=== PATIENT | female | born 1925 | race Caucasian/White ===

== ENCOUNTER 2016-07-29 14:18 | Emergency (ER) | payer MEDICARE, BC, OTHER ==
--- NOTE | 2016-07-29 15:52 | REP ---
Clinical: Pain and swelling . Technique: Moody scale and color Doppler evaluation using linear high frequency transducer. Findings: Ultrasound examination of the left lower extremity deep venous structures from the common femoral vein to the popliteal vein demonstrates normal compressibility flow and wave patterns in response to respiration and augmentation. There is no evidence for deep venous thrombosis. Impression: No evidence for deep venous thrombosis. Signed by Lg Armando MD 07/29/2016 03:44 P
--- NOTE | 2016-07-29 18:02 | EDDOCDS ---
Nurse's Notes [facility] Name: Marlyn Davison Age: 89 yrs Sex: Female : 1925 Arrival Date: 07/29/2016 Time: 14:18 Bed TR7 Private MD: Ida Ramires M. Diagnosis: Pain in left knee Presentation: 07/29 14:22 Presenting complaint: Patient states: pain/swelling in back of left knee for 4 days. rs3 was seen in urgent care. sent here to r/o blood clot. H/o DVT a year ago. Adult Sepsis Screening: The patient does not have new or worsening altered mentation. Patient's respiratory rate is less than 22. Systolic blood pressure is greater than 100. Patient has a qSOFA score of 0- Negative Sepsis Screen. Suicide/Homicide risk assessment- the patient denies having any suicidal and/or homicidal ideations and does not present with any other emotional, behavioral or mental health complaints. Status: Patient is not a agricultural services director or dependent. Transition of care: patient was not received from another setting of care. 14:22 Acuity: SHAINA Level 3 rs3 14:22 Method Of Arrival: Wheelchair rs3 Triage Assessment: 14:29 General: Appears in no apparent distress. Pain: Location: medial aspect of left knee. rs3 Historical: - Allergies: PENICILLINS (Hives); SULFA (SULFONAMIDES) (Hives); - Home Meds: 1. Calcarb 600 With Vitamin D 600 mg(1,500mg) -200 unit Oral tab daily 2. Fish Oil 1,000 mg oral cap daily 3. Glucosamine 500 mg oral tab daily 4. Tylenol 325 mg Oral tab 2 tabs every 4-6 hours 5. omeprazole 20 mg Oral TbEC 20 mg daily 6. Micardis 80 mg Oral tab 1 tab once daily 7. Klor-Con 10 10 mEq Oral TbER 1 tab 2 times per day 8. Multivitamin 50 Plus oral tab daily 9. Colace 100 mg oral cap 2 times per day 10. aspirin 81 mg Oral tab once daily 11. Lasix 20 mg Oral tab once daily - PMHx: Hypertension; Irritable bowel syndrome; GERD; - PSHx: Tubal ligation; D & C; Hemorrhoidectomy; - Social history: Smoking status: Patient states was never smoker of tobacco. No barriers to communication noted, The patient speaks fluent Montserratian. - Family history: Not pertinent. - : The pt / caregiver states he / she is not on anticoagulants. Home medication list is obtained from the patient. - Exposure Risk Screening:: None identified. Screenin:44 Screening information is obtained from the patient. Fall risk: No risks identified. hs1 Assistance ADL's: requires no assistance with activities of daily living. Abuse/DV Screen: The patient / caregiver reports he/she is: not in a situation that causes fear, pain or injury. Nutritional screening: No deficits noted. Advance Directives: Currently, there is no health care proxy. home support is adequate. Assessment: 15:55 General: Appears in no apparent distress, Behavior is appropriate for age, cooperative. hs1 Pain: Location: posterior aspect of left knee Pain currently is 8 out of 10 on a pain scale. Neurological: No deficits noted. Cardiovascular: No deficits noted. Respiratory: Airway is patent Respiratory effort is even, unlabored, Respiratory pattern is regular, symmetrical. Derm: Skin is pink, warm & dry. normal. Musculoskeletal: Range of motion intact in all extremities. Vital Signs: 14:20 BP 218 / 115; Pulse 79; Resp 18; Temp 97.2; Pulse Ox 99% ; Weight 81.19 kg; Height 5 elp ft. 4 in. (162.56 cm); Pain 9/10; 15:50 BP 180 / 86 LA (man/); hs1 17:09 BP 181 / 92; Pulse 70; Resp 18; Temp 98.3(TE); Pulse Ox 100% ; Pain 2/10; jrd 14:20 Body Mass Index 30.72 (81.19 kg, 162.56 cm) [facility] Vitals: 14:20 Log In Time: July 29, 2016 at 14:18. [facility] ED Course: 14:19 Patient visited by Olga Keating PCA. elp 14:19 Patient moved to Waiting elp 14:20 Ida Ramires is Private Physician. elp 14:20 Patient visited by Olga Keating PCA. elp 14:20 Patient moved to Pre RCE elp 14:24 Triage Initiated rs3 15:11 Patient moved to Triage 3 dls 15:15 [facility] jk8 15:15 Zana Gonzalez MD is Attending Physician. jk8 15:15 Patient visited by Cristian Glover PA-C. jk8 15:22 Patient moved to I7 / 29 dls 15:28 Patient moved to Ultrasound hgl 15:43 Patient moved to I7 / 29 hgl 15:50 Patient visited by Stephanie Bravo RN. hs1 16:28 Ultrasound LE Unilateral R/O DVT Returned. EDMS 16:40 No IV's were initiated during this patient's visit. No procedures done that require hs1 assistance. 16:56 Patient visited by Stephanie Bravo RN. hs1 17:03 Patient moved to PD2 / 27 jrd 17:09 Patient visited by Cristian Talavera PCA. jrd 17:15 Patient moved to TR7 jrd 17:20 The patient / caregiver is instructed regarding the plan of care and ED course. hs1 17:36 [facility] Payment Agreement was scanned into Roov[employer] and attached to record. kf3 Order Results: Radiology Order: Ultrasound LE Unilateral R/O DVT Test: Ultrasound LE Unilateral R/O DVT REASON FOR EXAMINATION: dvt; Clinical: Pain and swelling .; ; Technique: Moody scale and color Doppler evaluation using linear high frequency; transducer.; ; Findings:; Ultrasound examination of the left lower extremity deep venous structures from; the common femoral vein to the popliteal vein demonstrates normal compressibility; flow and wave patterns in response to respiration and augmentation. There is no; evidence for deep venous thrombosis.; ; Impression:; No evidence for deep venous thrombosis.; ; ; Signed by; Lg Armando MD 07/29/2016 03:44 P; Outcome: 15:58 Ultrasound Study completed. hs1 17:01 Discharge ordered by Provider. jk8 17:25 Discharge Assessment: Patient awake, alert and oriented x 3. No cognitive and/or hs1 functional deficits noted. Patient verbalized understanding of disposition instructions. patient administered narcotics - no. The following High Risk Discharge criteria are identified: None. Discharged to home ambulatory. Condition: good. Discharge instructions given to patient, Instructed on discharge instructions, follow up and referral plans. medication usage, Demonstrated understanding of instructions, medications, Property sent home with patient. 18:01 Patient left the ED. hs1 Signatures: Dispatcher [employer] EDShazia Nagel RN RN dls Fiddler, Kris, Reg Reg kf3 Ladi CrockettRN RN rs3 Stephanie Bravo RN RN hs1 Ly, Paresh hgl Olga Keating, BLADDER CHANGER BLADDER CHANGER jackyp Cristian Talavera, BLADDER CHANGER BLADDER CHANGER jrd Cristian Glover, YESENIA PATTERSON jk8 Corrections: (The following items were deleted from the chart) 18:01 18:00 Condition: good hs1 hs1 18: 18:00 Discharge Assessment: Patient awake, alert and oriented x 3. No cognitive and/or hs1 functional deficits noted. Patient verbalized understanding of disposition instructions. patient administered narcotics - no hs1 18: 18:00 The following High Risk Discharge criteria are identified: None. Discharged to [facility] home ambulatory, [facility] 18: 18:00 Property sent home with patient. [place] [id number] 18:01 18:00 Discharge instructions given to patient, Instructed on discharge instructions, hs1 follow up and referral plans. medication usage, Demonstrated understanding of instructions, medications, hs1 MTDD
--- NOTE | 2016-07-29 18:02 | EDDOCDS ---
Physician Documentation [facility] Name: Marlyn Davison Age: 89 yrs Sex: Female : 1925 Arrival Date: 07/29/2016 Time: 14:18 Bed TR7 Private MD: Ida Ramires M. Disposition: 07/29/16 17:01 Discharged to Home/Self Care. Impression: Pain in left knee. - Condition is Stable. - Medication Reconciliation, Local Pharmacy Hours form. - Follow up: Emergency Department; When: As soon as possible; Reason: Worsening of conditions. Follow up: Private Physician; When: 2 - 3 days; Reason: Recheck today's complaints. - Problem is new. - Symptoms are unchanged. Historical: - Allergies: PENICILLINS (Hives); SULFA (SULFONAMIDES) (Hives); - Home Meds: 1. Calcarb 600 With Vitamin D 600 mg(1,500mg) -200 unit Oral tab daily 2. Fish Oil 1,000 mg oral cap daily 3. Glucosamine 500 mg oral tab daily 4. Tylenol 325 mg Oral tab 2 tabs every 4-6 hours 5. omeprazole 20 mg Oral TbEC 20 mg daily 6. Micardis 80 mg Oral tab 1 tab once daily 7. Klor-Con 10 10 mEq Oral TbER 1 tab 2 times per day 8. Multivitamin 50 Plus oral tab daily 9. Colace 100 mg oral cap 2 times per day 10. aspirin 81 mg Oral tab once daily 11. Lasix 20 mg Oral tab once daily - PMHx: Hypertension; Irritable bowel syndrome; GERD; - PSHx: Tubal ligation; D & C; Hemorrhoidectomy; - Social history: Smoking status: Patient states was never smoker of tobacco. No barriers to communication noted, The patient speaks fluent Scottish. - Family history: Not pertinent. - : The pt / caregiver states he / she is not on anticoagulants. Home medication list is obtained from the patient. - Exposure Risk Screening:: None identified. Vital Signs: 07/29 14:20 BP 218 / 115; Pulse 79; Resp 18; Temp 97.2; Pulse Ox 99% ; Weight 81.19 kg / 178.99 elp lbs; Height 5 ft. 4 in. (162.56 cm); Pain 9/10; 15:50 BP 180 / 86 LA (man/); hs1 17:09 BP 181 / 92; Pulse 70; Resp 18; Temp 98.3(TE); Pulse Ox 100% ; Pain 2/10; jrd 14:20 Body Mass Index 30.72 (81.19 kg, 162.56 cm) elp MDM: 15:20 Vital Signs ordered. jk8 15:21 Ultrasound LE Unilateral R/O DVT Ordered. EDMS 17:04 Ultrasound LE Unilateral R/O DVT Reviewed. jk8 17:25 Financial registration complete. kf3 17:36 [facility] Payment Agreement was scanned into [employer]linet[employer] and attached to record. kf3 Signatures: Dispatcher MedHost EDMS John Richardson, Reg Reg kf3 Ladi CrockettRN RN rs3 Stephanie Bravo RN RN hs1 Cristian Glover PA-C PA-C jk8 The chart was reviewed and I authenticate all verbal orders and agree with the evaluation and treatment provided.Attachments: 17:36 [facility] [place] Agreement kf3 MTDD
--- NOTE | 2016-07-31 19:02 | EDDOCDS ---
Physician Documentation Name: Marlyn Davison Age: 89 yrs Sex: Female : 1925 Arrival Date: 07/29/2016 Time: 14:18 Bed TR7 Private MD: Ida Ramires M. Disposition: 07/29/16 17:01 Discharged to Home/Self Care. Impression: Pain in left knee. - Condition is Stable. - Medication Reconciliation, Local Pharmacy Hours form. - Follow up: Emergency Department; When: As soon as possible; Reason: Worsening of conditions. Follow up: Private Physician; When: 2 - 3 days; Reason: Recheck today's complaints. - Problem is new. - Symptoms are unchanged. Historical: - Allergies: PENICILLINS (Hives); SULFA (SULFONAMIDES) (Hives); - Home Meds: 1. Calcarb 600 With Vitamin D 600 mg(1,500mg) -200 unit Oral tab daily 2. Fish Oil 1,000 mg oral cap daily 3. Glucosamine 500 mg oral tab daily 4. Tylenol 325 mg Oral tab 2 tabs every 4-6 hours 5. omeprazole 20 mg Oral TbEC 20 mg daily 6. Micardis 80 mg Oral tab 1 tab once daily 7. Klor-Con 10 10 mEq Oral TbER 1 tab 2 times per day 8. Multivitamin 50 Plus oral tab daily 9. Colace 100 mg oral cap 2 times per day 10. aspirin 81 mg Oral tab once daily 11. Lasix 20 mg Oral tab once daily - PMHx: Hypertension; Irritable bowel syndrome; GERD; - PSHx: Tubal ligation; D & C; Hemorrhoidectomy; - Social history: Smoking status: Patient states was never smoker of tobacco. No barriers to communication noted, The patient speaks fluent Namibian. - Family history: Not pertinent. - : The pt / caregiver states he / she is not on anticoagulants. Home medication list is obtained from the patient. - Exposure Risk Screening:: None identified. Vital Signs: 07/29 14:20 BP 218 / 115; Pulse 79; Resp 18; Temp 97.2; Pulse Ox 99% ; Weight 81.19 kg / 178.99 elp lbs; Height 5 ft. 4 in. (162.56 cm); Pain 9/10; 15:50 BP 180 / 86 LA (man/); hs1 17:09 BP 181 / 92; Pulse 70; Resp 18; Temp 98.3(TE); Pulse Ox 100% ; Pain 2/10; jrd 14:20 Body Mass Index 30.72 (81.19 kg, 162.56 cm) elp MDM: 15:20 Vital Signs ordered. jk8 15:21 Ultrasound LE Unilateral R/O DVT Ordered. EDMS 17:04 Ultrasound LE Unilateral R/O DVT Reviewed. jk8 17:25 Financial registration complete. kf3 17:36 [facility] [place] Agreement was scanned into [employer] and attached to record. kf3 22:21 T-Sheet-- Draft Copy was scanned into [employer] and attached to record. klr Signatures: Dispatcher MedHost EDMI John Richardson, Reg Reg kf3 Ladi Crockett,RN RN rs3 Stephanie Bravo RN RN hs1 Cristian Glover PA-C PA-C jk8 Julee Oconnor klr The chart was reviewed and I authenticate all verbal orders and agree with the evaluation and treatment provided.Attachments: 17:36 [facility] Payment Agreement kf3 22:21 T-Sheet-- Draft Copy klr Chart Complete MTDD
--- NOTE | 2016-07-31 19:02 | EDDOCDS ---
Physician Documentation [facility] Name: Marlyn Davison Age: 89 yrs Sex: Female : 1925 Arrival Date: 07/29/2016 Time: 14:18 Bed TR7 Private MD: Ida Ramires M. Disposition: 07/29/16 17:01 Discharged to Home/Self Care. Impression: Pain in left knee. - Condition is Stable. - Medication Reconciliation, Local Pharmacy Hours form. - Follow up: Emergency Department; When: As soon as possible; Reason: Worsening of conditions. Follow up: Private Physician; When: 2 - 3 days; Reason: Recheck today's complaints. - Problem is new. - Symptoms are unchanged. Historical: - Allergies: PENICILLINS (Hives); SULFA (SULFONAMIDES) (Hives); - Home Meds: 1. Calcarb 600 With Vitamin D 600 mg(1,500mg) -200 unit Oral tab daily 2. Fish Oil 1,000 mg oral cap daily 3. Glucosamine 500 mg oral tab daily 4. Tylenol 325 mg Oral tab 2 tabs every 4-6 hours 5. omeprazole 20 mg Oral TbEC 20 mg daily 6. Micardis 80 mg Oral tab 1 tab once daily 7. Klor-Con 10 10 mEq Oral TbER 1 tab 2 times per day 8. Multivitamin 50 Plus oral tab daily 9. Colace 100 mg oral cap 2 times per day 10. aspirin 81 mg Oral tab once daily 11. Lasix 20 mg Oral tab once daily - PMHx: Hypertension; Irritable bowel syndrome; GERD; - PSHx: Tubal ligation; D & C; Hemorrhoidectomy; - Social history: Smoking status: Patient states was never smoker of tobacco. No barriers to communication noted, The patient speaks fluent German. - Family history: Not pertinent. - : The pt / caregiver states he / she is not on anticoagulants. Home medication list is obtained from the patient. - Exposure Risk Screening:: None identified. Vital Signs: 07/29 14:20 BP 218 / 115; Pulse 79; Resp 18; Temp 97.2; Pulse Ox 99% ; Weight 81.19 kg / 178.99 elp lbs; Height 5 ft. 4 in. (162.56 cm); Pain 9/10; 15:50 BP 180 / 86 LA (man/); hs1 17:09 BP 181 / 92; Pulse 70; Resp 18; Temp 98.3(TE); Pulse Ox 100% ; Pain 2/10; jrd 14:20 Body Mass Index 30.72 (81.19 kg, 162.56 cm) elp MDM: 15:20 Vital Signs ordered. jk8 15:21 Ultrasound LE Unilateral R/O DVT Ordered. EDMS 17:04 Ultrasound LE Unilateral R/O DVT Reviewed. jk8 17:25 Financial registration complete. kf3 17:36 [facility] Payment Agreement was scanned into Debitos and attached to record. kf3 22:21 T-Sheet-- Draft Copy was scanned into Debitos and attached to record. klr Signatures: Dispatcher MedHost EDTX John Richardson, Reg Reg kf3 Ladi Crockett,RN RN rs3 Stephanie Bravo RN RN hs1 Cristian Glover PA-C PA-C jk8 Julee Oconnor klr The chart was reviewed and I authenticate all verbal orders and agree with the evaluation and treatment provided.Attachments: 17:36 [facility] Payment Agreement kf3 22:21 T-Sheet-- Draft Copy klr Chart Complete MTDD
--- NOTE | 2016-07-31 19:02 | EDDOCDS ---
Nurse's Notes [facility] Name: Marlyn Davison Age: 89 yrs Sex: Female : 1925 Arrival Date: 07/29/2016 Time: 14:18 Bed TR7 Private MD: Ida Ramires M. Diagnosis: Pain in left knee Presentation: 07/29 14:22 Presenting complaint: Patient states: pain/swelling in back of left knee for 4 days. rs3 was seen in urgent care. sent here to r/o blood clot. H/o DVT a year ago. Adult Sepsis Screening: The patient does not have new or worsening altered mentation. Patient's respiratory rate is less than 22. Systolic blood pressure is greater than 100. Patient has a qSOFA score of 0- Negative Sepsis Screen. Suicide/Homicide risk assessment- the patient denies having any suicidal and/or homicidal ideations and does not present with any other emotional, behavioral or mental health complaints. Status: Patient is not a imaging services director or dependent. Transition of care: patient was not received from another setting of care. 14:22 Acuity: SHAINA Level 3 rs3 14:22 Method Of Arrival: Wheelchair rs3 Triage Assessment: 14:29 General: Appears in no apparent distress. Pain: Location: medial aspect of left knee. rs3 Historical: - Allergies: PENICILLINS (Hives); SULFA (SULFONAMIDES) (Hives); - Home Meds: 1. Calcarb 600 With Vitamin D 600 mg(1,500mg) -200 unit Oral tab daily 2. Fish Oil 1,000 mg oral cap daily 3. Glucosamine 500 mg oral tab daily 4. Tylenol 325 mg Oral tab 2 tabs every 4-6 hours 5. omeprazole 20 mg Oral TbEC 20 mg daily 6. Micardis 80 mg Oral tab 1 tab once daily 7. Klor-Con 10 10 mEq Oral TbER 1 tab 2 times per day 8. Multivitamin 50 Plus oral tab daily 9. Colace 100 mg oral cap 2 times per day 10. aspirin 81 mg Oral tab once daily 11. Lasix 20 mg Oral tab once daily - PMHx: Hypertension; Irritable bowel syndrome; GERD; - PSHx: Tubal ligation; D & C; Hemorrhoidectomy; - Social history: Smoking status: Patient states was never smoker of tobacco. No barriers to communication noted, The patient speaks fluent Slovak. - Family history: Not pertinent. - : The pt / caregiver states he / she is not on anticoagulants. Home medication list is obtained from the patient. - Exposure Risk Screening:: None identified. Screenin:44 Screening information is obtained from the patient. Fall risk: No risks identified. hs1 Assistance ADL's: requires no assistance with activities of daily living. Abuse/DV Screen: The patient / caregiver reports he/she is: not in a situation that causes fear, pain or injury. Nutritional screening: No deficits noted. Advance Directives: Currently, there is no health care proxy. home support is adequate. Assessment: 15:55 General: Appears in no apparent distress, Behavior is appropriate for age, cooperative. hs1 Pain: Location: posterior aspect of left knee Pain currently is 8 out of 10 on a pain scale. Neurological: No deficits noted. Cardiovascular: No deficits noted. Respiratory: Airway is patent Respiratory effort is even, unlabored, Respiratory pattern is regular, symmetrical. Derm: Skin is pink, warm & dry. normal. Musculoskeletal: Range of motion intact in all extremities. Vital Signs: 14:20 BP 218 / 115; Pulse 79; Resp 18; Temp 97.2; Pulse Ox 99% ; Weight 81.19 kg; Height 5 elp ft. 4 in. (162.56 cm); Pain 9/10; 15:50 BP 180 / 86 LA (man/); hs1 17:09 BP 181 / 92; Pulse 70; Resp 18; Temp 98.3(TE); Pulse Ox 100% ; Pain 2/10; jrd 14:20 Body Mass Index 30.72 (81.19 kg, 162.56 cm) [facility] Vitals: 14:20 Log In Time: July 29, 2016 at 14:18. [facility] ED Course: 14:19 Patient visited by Olga Keating PCA. elp 14:19 Patient moved to Waiting elp 14:20 Ida Ramires is Private Physician. elp 14:20 Patient visited by Olga Keating PCA. elp 14:20 Patient moved to Pre RCE elp 14:24 Triage Initiated rs3 15:11 Patient moved to Triage 3 dls 15:15 [facility]. jk8 15:15 Zana Gonzalez MD is Attending Physician. jk8 15:15 Patient visited by Cristian Glover PA-C. jk8 15:22 Patient moved to I7 / 29 dls 15:28 Patient moved to Ultrasound hgl 15:43 Patient moved to I7 / 29 hgl 15:50 Patient visited by Stephanie Bravo RN. hs1 16:28 Ultrasound LE Unilateral R/O DVT Returned. EDMS 16:40 No IV's were initiated during this patient's visit. No procedures done that require hs1 assistance. 16:56 Patient visited by Stephanie Bravo RN. hs1 17:03 Patient moved to PD2 / 27 jrd 17:09 Patient visited by Cristian Talavera PCA. jrd 17:15 Patient moved to TR7 jrd 17:20 The patient / caregiver is instructed regarding the plan of care and ED course. hs1 17:36 [facility] [place] Agreement was scanned into BLOVES and attached to record. kf3 22:21 T-Sheet-- Draft Copy was scanned into BLOV[employer] and attached to record. klr Order Results: Radiology Order: Ultrasound LE Unilateral R/O DVT Test: Ultrasound LE Unilateral R/O DVT REASON FOR EXAMINATION: dvt; Clinical: Pain and swelling .; ; Technique: Moody scale and color Doppler evaluation using linear high frequency; transducer.; ; Findings:; Ultrasound examination of the left lower extremity deep venous structures from; the common femoral vein to the popliteal vein demonstrates normal compressibility; flow and wave patterns in response to respiration and augmentation. There is no; evidence for deep venous thrombosis.; ; Impression:; No evidence for deep venous thrombosis.; ; ; Signed by; Lg Armando MD 07/29/2016 03:44 P; Outcome: 15:58 Ultrasound Study completed. hs1 17:01 Discharge ordered by Provider. jk8 17:25 Discharge Assessment: Patient awake, alert and oriented x 3. No cognitive and/or hs1 functional deficits noted. Patient verbalized understanding of disposition instructions. patient administered narcotics - no. The following High Risk Discharge criteria are identified: None. Discharged to home ambulatory. Condition: good. Discharge instructions given to patient, Instructed on discharge instructions, follow up and referral plans. medication usage, Demonstrated understanding of instructions, medications, Property sent home with patient. 18:01 Patient left the ED. hs1 Signatures: Dispatcher MedHost EDMS Shazia Saxena RN RN dls John Richardson, Reg Reg kf3 Ladi Crockett RN RN rs3 Stephanie Bravo RN RN hs1 Ly, Paresh hgl Zuri, Olga, SHOW DOG TRAINER SHOW DOG TRAINER elp Cristian Talavera, SHOW DOG TRAINER SHOW DOG TRAINER jrd Cristian Glover, Julee Pereira PA-C Corrections: (The following items were deleted from the chart) 18:01 18:00 Condition: good [address] [facility] 18:01 18:00 Discharge Assessment: Patient awake, alert and oriented x 3. No cognitive and/or hs1 functional deficits noted. Patient verbalized understanding of disposition instructions. patient administered narcotics - no 1 18: 18:00 The following High Risk Discharge criteria are identified: None. Discharged to 1 home ambulatory, [facility] 18:01 18:00 Property sent home with patient. [place] [id number] 18:01 18:00 Discharge instructions given to patient, Instructed on discharge instructions, 1 follow up and referral plans. medication usage, Demonstrated understanding of instructions, medications, hs1 Chart Complete MTDD
== END 2016-07-29 18:01 | disposition home or self-care (01) ==
LOC: M ED 14:18
DX: M79.605 Pain in left leg (principal); I10 Essential (primary) hypertension; K58.9 Irritable bowel syndrome, unspecified; K21.9 Gastro-esophageal reflux disease without esophagitis; Z79.82 Long term (current) use of aspirin; Z79.899 Other long term (current) drug therapy; Z88.0 Allergy status to penicillin; Z88.2 Allergy status to sulfonamides

== ENCOUNTER 2016-10-02 20:47 | Emergency (ER) | payer MEDICARE, BC, OTHER ==
[~2016-10-02] VITALS: Ht 162.6 cm; Wt 80.7 kg
[2016-10-02] MEDS ORDERED: FISH100049 PO (21:13)
[2016-10-02] MEDS ORDERED: FURO40TA2 PO (21:13)
[2016-10-02] MEDS ORDERED: POTA10CA PO (21:13)
[2016-10-02] MEDS ORDERED: TELM1TAB2 PO (21:13)
[2016-10-02] MEDS ORDERED: ALLO100T PO (21:13)
[2016-10-02] MEDS ORDERED: SIMV20TA2 PO (21:13)
[2016-10-02] MEDS ORDERED: OMEP20CA3 PO (21:13)
[2016-10-02] MEDS ORDERED: ASPI81TA85 PO (21:14)
[2016-10-02] MEDS ORDERED: TYLE500T78 PO (21:14)
--- NOTE | 2016-10-02 23:00 | REPUSA ---
CLINICAL HISTORY: Edema. COMMENTS: Real time sonography with duplex doppler of the left lower extremity was performed with attention to the major deep venous structures. Evaluation reveals the left common femoral, superficial femoral and popliteal veins to be completely compressible without intraluminal thrombus. There is normal spontaneous phasic flow and augmentation. The greater saphenous/common femoral vein junction is patent. IMPRESSION: No evidence of DVT in left lower extremity.. Thank you for your kind referral of this patient.
[2016-10-02 23:12] VITALS: BP 178/90
--- NOTE | 2016-10-03 07:42 | REP ---
Clinical: Pain and swelling. Technique: AP and lateral views. Comparison: 09/22/2012. Findings: Advanced tricompartmental osteoarthritic degenerative changes are appreciated including chondrocalcinosis, cortical irregularities and spurring, and joint space narrowing. No acute fracture dislocation. Lateral view cannot exclude suprapatellar effusion. Impression: Advanced tricompartmental osteoarthritic degenerative changes. Possible suprapatellar effusion. No acute fracture or dislocation. Signed by Lg Armando MD 10/03/2016 07:33 A
== END 2016-10-02 23:19 | disposition home or self-care (01) ==
LOC: M ED 22:08
DX: M25.462 Effusion, left knee (principal); Z86.718 Personal history of other venous thrombosis and embolism

== ENCOUNTER → 2017-02-11 | Outpatient (CLI) | payer MEDICARE, BC, OTHER ==
[~2017-02-11] MED LIST: ALLO100T PO; ASPI81TA85 PO; FISH100049 PO; FURO40TA2 PO; OMEP20CA3 PO; POTA10CA PO; SIMV20TA2 PO; TELM1TAB2 PO; TYLE500T78 PO
[2017-02-11 18:24] LABS: ALBUMIN 3.4 GM/DL (3.2-5.2); ALBUMIN/GLOBULIN RATIO 1.17 (1.00-1.93); BILIRUBIN,TOTAL 0.3 MG/DL (0.2-1.0); CALCIUM LEVEL 8.7 MG/DL (8.8-10.2); CREATININE FOR GFR 1.54 MG/DL (0.55-1.02); GLOMERULAR FILTRATION RATE 33.8 (>32); POTASSIUM SERUM 4.2 MEQ/L (3.5-5.1); TOTAL PROTEIN 6.3 GM/DL (6.4-8.2); URIC ACID 5.3 MG/DL (2.6-6.0)
== END ==
LOC: M WUC 14:34
PROVIDERS: ATTEND Nurse Practitioner Family
DX: I10 Essential (primary) hypertension (principal)

== ENCOUNTER → 2017-04-14 | Outpatient (CLI) | payer MEDICARE, BC, OTHER ==
[2017-04-14 18:29] LABS: ALBUMIN 3.6 GM/DL (3.2-5.2); ALBUMIN/GLOBULIN RATIO 1.24 (1.00-1.93); BILIRUBIN,TOTAL 0.3 MG/DL (0.2-1.0); CALCIUM LEVEL 8.7 MG/DL (8.8-10.2); CREATININE FOR GFR 1.39 MG/DL (0.55-1.02); POTASSIUM SERUM 4.1 MEQ/L (3.5-5.1); TOTAL PROTEIN 6.5 GM/DL (6.4-8.2)
== END ==
LOC: M WUC 13:41
PROVIDERS: ATTEND Nurse Practitioner Family
DX: I12.9 Hypertensive chronic kidney disease with stage 1 through stage 4 chronic kidney disease, or unspecified chronic kidney disease (principal); N18.3 Chronic kidney disease, stage 3 (moderate)

== ENCOUNTER → 2017-05-03 | Outpatient (REF) | payer MEDICARE, OTHER ==
[2017-05-03 15:55] LABS: MEAN CORPUSCULAR HEMOGLOBIN 31.3 pg (27.0-33.0); MEAN CORPUSCULAR VOLUME 94.8 fl (80.0-96.0); PLATELET COUNT, AUTOMATED 248 10^3/uL (150-450); RED CELL DISTRIBUTION WIDTH 12.9 % (11.5-14.5); WHITE BLOOD COUNT 6.7 10^3/uL (4.0-10.0)
[2017-05-03 16:07] LABS: ALBUMIN 3.7 GM/DL (3.2-5.2); ALBUMIN/GLOBULIN RATIO 1.28 (1.00-1.93); BILIRUBIN,TOTAL 0.4 MG/DL (0.2-1.0); CALCIUM LEVEL 9.1 MG/DL (8.8-10.2); CREATININE FOR GFR 1.47 MG/DL (0.55-1.02); GLOMERULAR FILTRATION RATE 35.6 (>32); POTASSIUM SERUM 4.7 MEQ/L (3.5-5.1); TOTAL PROTEIN 6.6 GM/DL (6.4-8.2); URIC ACID 5.6 MG/DL (2.6-6.0)
== END ==
LOC: M SFHCPLAZ 12:10
PROVIDERS: ATTEND Family Medicine
DX: I11.9 Hypertensive heart disease without heart failure (principal); N18.3 Chronic kidney disease, stage 3 (moderate); E78.2 Mixed hyperlipidemia; M10.9 Gout, unspecified; Z23 Encounter for immunization
CPT/HCPCS: 36415; 80053; 80061; 82306; 84550; 85027; 90662; G0008; G0463

== ENCOUNTER 2017-09-15 10:51 | Emergency (ER) | payer MEDICARE, BC, OTHER | END 2017-09-15 13:15 | disposition home or self-care (01) | LOC: M ED 10:51 | DX: S52.571A Other intraarticular fracture of lower end of right radius, initial encounter for closed fracture (principal); S00.211A Abrasion of right eyelid and periocular area, initial encounter; S80.212A Abrasion, left knee, initial encounter; S20.412A Abrasion of left back wall of thorax, initial encounter; W19.XXXA Unspecified fall, initial encounter; Y92.094 Garage of other non-institutional residence as the place of occurrence of the external cause; I10 Essential (primary) hypertension; E78.9 Disorder of lipoprotein metabolism, unspecified; Z85.3 Personal history of malignant neoplasm of breast; Z88.0 Allergy status to penicillin; Z88.2 Allergy status to sulfonamides; Z88.8 Allergy status to other drugs, medicaments and biological substances; Z79.899 Other long term (current) drug therapy; Z79.82 Long term (current) use of aspirin | CPT/HCPCS: 71046 ==

== ENCOUNTER → 2017-10-10 | Outpatient (REF) | payer MEDICARE, OTHER ==
[2017-10-10 10:05] LABS: HEMATOCRIT 35.3 % (36.0-47.0); HEMOGLOBIN 11.6 g/dl (12.0-16.0); MEAN CORPUSCULAR HEMOGLOBIN 30.1 pg (27.0-33.0); MEAN CORPUSCULAR HGB CONC 32.9 g/dl (32.0-36.5); MEAN CORPUSCULAR VOLUME 91.7 fl (80.0-96.0); PLATELET COUNT, AUTOMATED 278 10^3/uL (150-450); RED BLOOD COUNT 3.85 10^6/uL (4.00-5.40); RED CELL DISTRIBUTION WIDTH 13.2 % (11.5-14.5); WHITE BLOOD COUNT 5.2 10^3/uL (4.0-10.0)
[2017-10-10 10:14] LABS: ALBUMIN 3.5 GM/DL (3.2-5.2); ALBUMIN/GLOBULIN RATIO 1.03 (1.00-1.93); ALKALINE PHOSPHATASE 69 U/L (45-117); ALT/SGPT 14 U/L (12-78); ANION GAP 7 MEQ/L (8-16); AST/SGOT 11 U/L (7-37); BILIRUBIN,TOTAL 0.5 MG/DL (0.2-1.0); BLOOD UREA NITROGEN 29 MG/DL (7-18); CALCIUM LEVEL 8.8 MG/DL (8.8-10.2); CARBON DIOXIDE LEVEL 33 MEQ/L (21-32); CHLORIDE LEVEL 97 MEQ/L (98-107); CHOLESTEROL LEVEL 162 MG/DL (<200); CHOLESTEROL RISK RATIO 2.131 (<5); CREATININE FOR GFR 1.34 MG/DL (0.55-1.30); GLOMERULAR FILTRATION RATE 39.6 (>32); GLUCOSE, FASTING 90 MG/DL (70-100); HDL CHOLESTEROL 76 MG/DL (>40); NON-HDL-C 86 MG/DL; POTASSIUM SERUM 3.7 MEQ/L (3.5-5.1); SODIUM LEVEL 137 MEQ/L (136-145); TOTAL PROTEIN 6.9 GM/DL (6.4-8.2); TRIGLYCERIDES LEVEL 80 MG/DL (<150); URIC ACID 4.9 MG/DL (2.6-6.0)
[2017-10-10 10:47] LABS: TOTAL 25(OH) VITAMIN D 42.4 NG/ML (30.0-100.0)
== END ==
LOC: M SHH 09:21
DX: N18.3 Chronic kidney disease, stage 3 (moderate) (principal); I11.9 Hypertensive heart disease without heart failure; E78.2 Mixed hyperlipidemia; M10.9 Gout, unspecified
CPT/HCPCS: 84550